=== PATIENT | male | born 1990 | race Caucasian/White ===

== ENCOUNTER 2019-08-20 11:59 | Emergency (ER) | payer SELFPAY ==
[~2019-08-20] VITALS: Ht 190.5 cm; Wt 83.3 kg
--- NOTE | 2019-08-20 12:51 | NUR ---
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
--- NOTE | 2019-08-20 13:02 | NUR ---
Pt arrives to ed with c/o of fatigue and generally not feeling well. Pt reports he started feeling ill yesterday and has not improved. Pt reports he feels sob and unable to feel better. Pt denies being exposed to COVID-19 that he is aware of. Pt reports he however does do cocaine on the weekends and smokes weed as well. Smokes about 3 cigarettes a day. 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 Pt denies any trauma. Pt does have productive cough and appears to be in distress with couighing spells. Pt placed in negative pressure room. Pt connected to monitors and call light in reach.
[2019-08-20 14:06] VITALS: BP 133/77
--- NOTE | 2019-08-20 14:22 | NUR ---
REVIEWED SELF ISOLATION NEED FOR 2 WEEKS, SXS TO WATCH FOR REQUIRING REPEAT EVALUATION TEACH BACK SUCCESSFUL
== END 2019-08-20 14:25 | disposition home or self-care (01) ==
LOC: ED 14:00
DX: B34.9 Viral infection, unspecified (principal); Z20.828 Contact with and (suspected) exposure to other viral communicable diseases; R50.9 Fever, unspecified; R05 Cough; J02.9 Acute pharyngitis, unspecified; R06.02 Shortness of breath; R00.0 Tachycardia, unspecified
CPT/HCPCS: 36415; 71046; 87635; 93005; 99285